=== PATIENT | female | born 1985 | race Caucasian/White ===

== ENCOUNTER 2017-11-13 17:51 | Emergency (ER) | payer BC ==
[2017-11-13] MEDS ORDERED: Lidocaine 1% INJ* 10 MG/ML 30 ML SDV INJ ONE (17:59)
--- NOTE | 2017-11-13 18:05 | ED ---
Laceration/Wound HPI - HPI Summary HPI Summary: 32F presents with left index finger laceration today. 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 She has multiple laceration at distal phalanx left index finger. no numbness or tingling. She denies any previous injury to the area. There is no active bleeding. The finger is still attached. She is right handed. She is . Her tetanus up-to-date. The pain is 8 out of 10. Pain is worse with movement. Has full range of motion of the finger. - History of Current Complaint Stated Complaint: LT INDEX FINGER LAC Time Seen by Provider: 11/13/17 17:56 Pain Intensity: 10 - Allergy/Home Medications Allergies/Adverse Reactions: Allergies Allergy/AdvReac Type Severity Reaction Status Date / Time cefaclor Allergy Unknown Verified 11/13/17 17:58 Reaction Details Penicillins Allergy Unknown Verified 11/13/17 17:58 Reaction Details PMH/Surg Hx/FS Hx/Imm Hx Endocrine/Hematology History: Denies: Hx Diabetes, Hx Anemia Cardiovascular History: Denies: Hx Myocardial Infarction GI History: Denies: Hx Jaundice Infectious Disease History: No Infectious Disease History: Denies: Traveled Outside the [place] in Last 30 Days - Family History Known Family History: Negative: Diabetes - Social History Substance Use Type: Reports: None Review of Systems Negative: Fever Negative: Chest Pain Negative: Shortness Of Breath Positive: Other - left index finger All Other Systems Reviewed And Are Negative: Yes Physical Exam Triage Information Reviewed: Yes Vital Signs On Initial Exam: Initial Vitals Temp Pulse Resp BP Pulse Ox 97.6 F 78 16 100/60 100 11/13/17 17:52 11/13/17 17:52 11/13/17 17:52 11/13/17 17:52 11/13/17 17:52 Vital Signs Reviewed: Yes Appearance: Positive: Well-Appearing Skin: Positive: Warm, Dry, Other - multiple laceration around left distal phlanax left index finger: 2cm, 2cm, 1cm, 1cm, 1cm laceration Head/Face: Positive: Normal Head/Face Inspection Eyes: Positive: Normal, Conjunctiva Clear Respiratory/Lung Sounds: Positive: Clear to Auscultation, Breath Sounds Present Cardiovascular: Positive: Normal, RRR Musculoskeletal: Positive: Limited @ - distal phalanx left finger, Other - capillary refill<2 secs Neurological: Positive: Normal Psychiatric: Positive: Normal Procedures - Laceration/Wound Repair 1 Location: Other - left index finger Description: Irregular Anesthesia: Digital, 1.0% Length, Depth and Shape: multiples laceration of distal phalanx 2cm by1/2cm, 2cm by 1/2cm, 1cm by1/4cm, 1cm by1/4cm, 1cm by 1/2cm laceration Irrigated w/ Saline (ccs): 1,000 Laceration/Wound Explored: no foreign body removed Closure: Single Layer Suture Type: Prolene - 4-0 Number of Sutures: 15 Layer Closure?: No Sterile Dressing Applied?: Yes - telfa, coband Diagnostics - Vital Signs Vital Signs Temp Pulse Resp BP Pulse Ox 11/13/17 17:52 97.6 F 78 16 100/60 100 - Laboratory Lab Statement: Any lab studies that have been ordered have been reviewed, and results considered in the medical decision making process. - Radiology finger Xray Interpretation: Positive (See Comments) - IMPRESSION: Soft tissue displacement as well as fracture of the distal phalanx of the left index finger. Radiology Interpretation Completed By: Radiologist Laceration Repair Course/Dx - Course Course Of Treatment: 32F presents with left index finger laceration today. 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 She has multiple laceration at distal phalanx left index finger. no numbness or tingling. She denies any previous injury to the area. There is no active bleeding. The finger is still attached. She is right handed. She is . Her tetanus up-to-date. The pain is 8 out of 10. Pain is worse with movement. Has full range of motion of the finger. Neurovascularly intact. cleaned area. multiples laceration of distal phalanx 2cm by1/2cm (4 sutures), 2cm by 1/2cm (4 sutures), 1cm by1/4cm (2), 1cm by1/4cm (1 suture), 1cm by 1/2cm (2 suture) laceration that closed with 15 sutures total. gave dose of clindmaycin as has tuft fracture so is open fracture. will have continue clindamycin. will have follow up with ortho. The patient understands and agrees with plan. - Differential Dx Differental Diagnoses: Abrasion, Avulsion, Laceration - Clinical Impression Provider Diagnoses: Finger laceration, Open fracture of tuft of distal phalanx of finger Discharge - Sign-Out/Discharge Documenting (check all that apply): Discharge/Admit/Transfer - Discharge Plan Condition: Good Disposition: HOME Prescriptions: Clindamycin Cap(NF) [Clindamycin Cap 300 mg Cap(NF)] 300 mg PO TID #20 cap Patient Education Materials: Care For Your Stitches (ED), Finger Fracture (ED) Referrals: Luis Felipe Short MD [Primary Care Provider] - Lele Ulloa MD [Medical Doctor] - Additional Instructions: Take antibiotic three times a day for 7 days Keep area becky taped or in splint, change dressing once a day Keep area clean and dry for 48 hours Take Tylenol for pain every 6 hours Return to ED or primary for suture removal in 10-14 days Follow up with ortho Return to ED if develop signs of infection such as fever, spreading redness, or pus formation - Billing Disposition and Condition Condition: GOOD Disposition: HOME
[2017-11-13] MEDS ORDERED: Clindamycin 600 MG IVPREMIX(* 600 MG/50 ML SDV IV ONE (18:43)
--- NOTE | 2017-11-13 18:54 | RAD ---
Indication: Left finger injury. 3 views of left finger demonstrates soft tissue defect at the distal tip of the index finger. Fracture of the distal phalanx is noted in distal portion without significant displacement. IMPRESSION: Soft tissue displacement as well as fracture of the distal phalanx of the left index finger.
[2017-11-13] MEDS ORDERED: Acetaminophen TAB* 325 MG PO ONE (20:03)
[2017-11-13 22:16] VITALS: BP 96/53
== END 2017-11-13 22:14 | disposition home or self-care (01) ==
LOC: ED 17:51
DX: S62.631B Displaced fracture of distal phalanx of left index finger, initial encounter for open fracture (principal); S61.211A Laceration without foreign body of left index finger without damage to nail, initial encounter; W31.89XA Contact with other specified machinery, initial encounter; Y92.9 Unspecified place or not applicable; Z88.0 Allergy status to penicillin; Z88.3 Allergy status to other anti-infective agents
CPT/HCPCS: 12002; 73140; 96374; 99282; A9270-GY

== ENCOUNTER 2023-02-04 09:49 | Observation (INO) ==
[2023-02-04 11:01] LABS: ABS Basophils 0.1 10^3/uL (0.0-0.1); ABS Neutrophils 11.3 10^3/uL (1.5-7.6); Eosinophil % 0.2 %; Hematocrit 38.7 % (35-45); Hemoglobin 13.2 g/dL (11.5-14.3); Lymphocyte % 7.1 %; Mean Corpuscular Hemoglobin 29.7 pg (27-33); Mean Corpuscular Volume 87.5 fL (80-97); Mean Platelet Volume 9.2 fL (7.5-11.2); Platelet Count 206 10^3/uL (150-450); Red Blood Count 4.43 10^6/uL (3.63-4.92); White Blood Count 13.3 10^3/uL (3.8-11.8)
[2023-02-04 11:08] LABS: Urine Appearance Clear; Urine Bilirubin Negative (Negative); Urine Blood 1+ (Negative); Urine Color Yellow; Urine Glucose 1+(50 mg/dL) (Negative); Urine Ketones 1+ (Negative); Urine Nitrite Negative (Negative); Urine Protein Negative (Negative); Urine Specific Gravity 1.011 (1.002-1.030); Urine Urobilinogen Negative (Negative)
[2023-02-04 11:14] LABS: Urine Bacteria Absent (Absent); Urine Red Blood Cell Trace(0-2/hpf) (Absent); Urine Squamous Epithelial Cell Present (Absent); Urine White Blood Cell Absent (Absent)
[2023-02-04 11:25] LABS: HCG Pregnancy < 0.60 mIU/mL
[2023-02-04 11:36] LABS: ALT 11 U/L (7-52); AST 14 U/L (13-39); Albumin 4.6 g/dL (3.2-5.2); Albumin/Globulin Ratio 1.6 (1-3); Alkaline Phosphatase 42 U/L (35-149); Anion Gap 8 mmol/L (2-16); Blood Urea Nitrogen 10 mg/dL (6-24); C Reactive Protein 100.98 mg/L (<8.01); CO2 Carbon Dioxide 26 mmol/L (22-32); Calcium 9.3 mg/dL (8.6-10.3); Chloride 101 mmol/L (101-111); Creatinine, Serum 0.77 mg/dL (0.51-0.95); Globulin 2.8 g/dL (2-4); Glucose 137 mg/dL (70-100); Lipase < 10 U/L (11.0-82.0); Potassium 3.9 mmol/L (3.5-5.0); Sodium 135 mmol/L (135-145); Total Protein 7.4 g/dL (6.4-8.9); eGFR CKD-EPI 100.6 (>60)
[2023-02-04] MEDS ORDERED: Lactated Ringers 1000 ml BAG 1,000 ML IV ONE ×2 (11:41→12:38)
[2023-02-04] MEDS ORDERED: Iohexol 350 (CONTRAST) 500 ML MDV IV ONE (12:20)
[2023-02-04] MEDS ORDERED: metroNIDAZOLE IV 500 MG/100ML 500 MG/100 ML BAG IVPB ONE (12:38)
[2023-02-04] MEDS ORDERED: Ciprofloxacin 400mg IVPREMIX 400 MG/200 ML BAG IVPB ONE (12:38)
[2023-02-04] MEDS ORDERED: Ondansetron 4 mg VIAL 2 MG/ML 2 ml VIAL IV PRN (16:09)
[2023-02-04] MEDS ORDERED: HYDROmorphone 0.5 MG/0.5 ML SYRINGE IV SLOW PU PRN (16:14)
[2023-02-04] MEDS: metroNIDAZOLE IV 500 MG/100ML 500 MG/100 ML BAG IVPB SCH (20:59)
[2023-02-04] MEDS: Lactated Ringers 1000 ml BAG 1,000 ML IV SCH (22:19)
[2023-02-04] MEDS ORDERED: metroNIDAZOLE IV 500 MG/100ML 500 MG/100 ML BAG IVPB SCH (23:00)
[2023-02-05] MEDS ORDERED: Ciprofloxacin 400mg IVPREMIX 400 MG/200 ML BAG IVPB SCH (01:00)
[2023-02-05] MEDS: Ciprofloxacin 400mg IVPREMIX 400 MG/200 ML BAG IVPB SCH ×2 (01:07→13:12)
[2023-02-05] MEDS: metroNIDAZOLE IV 500 MG/100ML 500 MG/100 ML BAG IVPB SCH ×2 (04:58→14:16)
[2023-02-05 05:54] LABS: ABS Eosinophils 0.1 10^3/uL (0.0-0.5); ABS Monocytes 0.7 10^3/uL (0.0-0.9); ABS Neutrophils 6.5 10^3/uL (1.5-7.6); Hematocrit 30.9 % (35-45); Hemoglobin 10.7 g/dL (11.5-14.3); Lymphocyte % 11.7 %; Mean Corpuscular Hemoglobin 30.4 pg (27-33); Mean Corpuscular Hgb Conc 34.8 g/dL (31-36); Mean Corpuscular Volume 87.5 fL (80-97); Mean Platelet Volume 9.5 fL (7.5-11.2); Platelet Count 159 10^3/uL (150-450); Red Blood Count 3.53 10^6/uL (3.63-4.92); Red Cell Distribution Width 13.6 % (12-17); White Blood Count 8.3 10^3/uL (3.8-11.8)
[2023-02-05 06:09] LABS: Albumin 3.5 g/dL (3.2-5.2); Albumin/Globulin Ratio 1.6 (1-3); Calcium 8.4 mg/dL (8.6-10.3); Creatinine, Serum 0.65 mg/dL (0.51-0.95); Globulin 2.2 g/dL (2-4); Potassium 3.7 mmol/L (3.5-5.0); Total Bilirubin 0.9 mg/dL (0.2-1.0); Total Protein 5.7 g/dL (6.4-8.9); eGFR CKD-EPI 114.8 (>60)
[2023-02-05] MEDS: Lactated Ringers 1000 ml BAG 1,000 ML IV SCH (13:11)
[2023-02-05 14:01] VITALS: BP 113/69
== END 2023-02-05 16:40 | disposition home or self-care (01) | DRG 244 ==
LOC: ED 09:49 → EDHOLD 18:05 → INTOOBSV 18:05 → EDHOLD 18:29 → MED 19:31
PROVIDERS: ADMIT Surgery Surgical Critical Care; ATTEND Surgery Surgical Critical Care